=== PATIENT | female | born 1945 | race Caucasian/White ===

== ENCOUNTER → 2023-01-18 08:49 | Outpatient (CLI) | payer OTHER, SELFPAY ==
--- NOTE | 2023-01-18 08:55 | DI.RAD.S_ITS ---
PROCEDURE: XR LUMBAR SPINE 2-3V INDICATIONS: low back pain TECHNIQUE: 3 views of the lumbar spine were acquired. COMPARISON: None. FINDINGS: Bones: 5 [id number] vertebrae are present. Grade 1 anterolisthesis of L3 on L4. Mild disc height loss at all levels. Facet arthrosis L2 through S1. Soft tissues: Overlying bowel gas pattern is normal. No suspicious soft tissue calcifications. IMPRESSION: Mild, multilevel degenerative disc disease and facet arthrosis. Dictated by: Denver Alexander M.D. on 01/18/2023 at 10:17 Approved by: Denver Alexander M.D. on 01/18/2023 at 10:17
[2023-01-18 10:21] LABS: Hemoglobin A1C% w Est Avg Glu 5.3 % (4.0-6.0)
[2023-01-18 10:58] LABS: Alanine Aminotransferase 16 IU/L (<35); Albumin 4.1 g/dL (3.5-5.0); Albumin Globulin Ratio 1.4 (1.0-2.8); Alkaline Phosphatase 111 U/L (38-126); Aspartate Aminotransferase 23 IU/L (14-36); BUN Creatinine Ratio 15.5 (6-22); Bilirubin Total 0.4 mg/dL (0.2-1.3); Blood Urea Nitrogen 13 mg/dL (7-17); Calcium 9.4 mg/dL (8.4-10.2); Carbon Dioxide 28 mmol/L (22-32); Chloride 103 mmol/L (98-107); Cholesterol 211 mg/dL (140-199); Estimated Glomerular Filt Rate > 60 mL/min (>60); Glucose 98 mg/dL (80-110); HDL Cholesterol 42 mg/dL (40-60); HEMOLYSIS < 15 (0-50); LDL Cholesterol Calculated 144 mg/dL (<100); Potassium 4.2 mmol/L (3.4-5.1); Sodium 140 mmol/L (137-145); Total Protein 7.1 g/dL (6.3-8.2); Triglycerides 124 mg/dL (35-150)
== END ==
PROVIDERS: PCP Family Medicine; Referring Provider Family Medicine; Visit Provider Family Medicine
DX: Z00.00 Encounter for general adult medical examination without abnormal findings (principal); M51.16 Intervertebral disc disorders with radiculopathy, lumbar region; M47.26 Other spondylosis with radiculopathy, lumbar region; M47.27 Other spondylosis with radiculopathy, lumbosacral region; M54.50 Low back pain, unspecified; G89.29 Other chronic pain; R03.0 Elevated blood-pressure reading, without diagnosis of hypertension; Z13.1 Encounter for screening for diabetes mellitus; Z13.6 Encounter for screening for cardiovascular disorders
CPT/HCPCS: 36415; 72100; 80053; 80061; 83036

== ENCOUNTER → 2023-02-22 12:24 | Outpatient (CLI) | payer OTHER, SELFPAY ==
--- NOTE | 2023-02-22 12:27 | DI.RAD.S_ITS ---
PROCEDURE: XR CHEST 2V INDICATIONS: cough x 6 months TECHNIQUE: 2 views of the chest were acquired. COMPARISON: None. FINDINGS: Surgical changes and devices: None. Lungs and pleura: Lungs are clear. No pleural effusions or pneumothorax. Mediastinum: Mediastinal contours are normal. Heart size is normal. Bones and chest wall: No suspicious bony abnormalities. Soft tissues appear unremarkable. IMPRESSION: No acute cardiopulmonary disease process. Dictated by: Lita Neves MD, PhD on 02/22/2023 at 13:22 Approved by: Lita Neves MD, PhD on 02/22/2023 at 13:22
== END ==
PROVIDERS: PCP Family Medicine; Referring Provider Family Medicine; Visit Provider Family Medicine
DX: R05.3 Chronic cough (principal)
CPT/HCPCS: 71046

== ENCOUNTER → 2024-06-25 09:30 | Outpatient (CLI) | payer MEDICARE, SELFPAY ==
--- NOTE | 2024-06-25 09:31 | DI.US.S_ITS ---
PROCEDURE: US PERIPH VENOUS LOW EXTREM RT INDICATIONS: Right leg pain TECHNIQUE: Real-time imaging, as well as color and pulse Doppler interrogation, were performed of the lower extremity deep veins from the inguinal ligament to the popliteal fossa, with documentation of the visualized calf veins. COMPARISON: None. FINDINGS: The common femoral, femoral, popliteal, and the visualized calf veins are normally compressible, and free of intraluminal thrombus. Color and pulse Doppler demonstrate normal phasic intraluminal flow. There is normal augmentation response to distal compression maneuver. A knee joint effusion is present. IMPRESSION: 1. Negative right lower extremity duplex venous ultrasound for DVT. 2. Knee joint effusion. Dictated by: Kennedy Neville M.D. on 06/25/2024 at 10:51 Approved by: Kennedy Neville M.D. on 06/25/2024 at 10:52
--- NOTE | 2024-06-25 10:38 | DI.RAD.S_ITS ---
PROCEDURE: XR KNEE RT 3V INDICATIONS: right knee pain TECHNIQUE: 3 views of the knee were acquired. COMPARISON: None. FINDINGS: Small knee effusion. Mild lateral tilt of the patella. Severe, patellofemoral compartment predominant osteoarthritis. Ossification about the lateral aspect of the patella, representing prior injury. No acute fracture or dislocation. IMPRESSION: Degenerative changes as described above. Dictated by: Denisha Ruiz M.D. on 06/25/2024 at 14:59 Approved by: Denisha Ruiz M.D. on 06/25/2024 at 15:01
== END ==
PROVIDERS: PCP Family Medicine; Referring Provider Nurse Practitioner Family; Visit Provider Nurse Practitioner Family
DX: M17.11 Unilateral primary osteoarthritis, right knee (principal); M79.604 Pain in right leg; M25.561 Pain in right knee; M25.461 Effusion, right knee
CPT/HCPCS: 73562; 93971

== ENCOUNTER → 2024-08-10 16:56 | Outpatient (CLI) | payer MEDICARE, SELFPAY ==
[2024-08-10 18:55] LABS: Cholesterol 222 mg/dL (140-199); HDL Cholesterol 46 mg/dL (40-60); LDL Cholesterol Calculated 151 mg/dL (<100); Triglycerides 127 mg/dL (35-150)
[2024-08-11 05:42] LABS: High Sensitivity CRP - Cardiac 3.1 mg/L (1.0-3.0)
== END ==
PROVIDERS: PCP Family Medicine; Referring Provider Family Medicine; Visit Provider Family Medicine
DX: E78.5 Hyperlipidemia, unspecified (principal)
CPT/HCPCS: 80061; 86140

== ENCOUNTER 2025-08-21 09:50 | Day surgery (SDC) | payer MEDICARE, SELFPAY ==
[2025-08-16 09:02] VITALS: BMI 36.3
[2025-08-21] VITALS (7 sets, daily range): BP systolic 106–133; BP diastolic 56–81; PULSE 64–89; RESP 14–25; TEMP 36.2–37.1; O2SAT 95–99
[2025-08-21] MEDS: LACTATED RINGERS 1,000 ML 42 ML IV (11:00)
--- NOTE | 2025-08-21 12:11 | PM.PREOP ---
Pre-operative Note Interval Note History & Physical reviewed/Exam performed by Physician: Yes Changes to H&P: No
--- NOTE | 2025-08-21 12:59 | SUR.OPER ---
Supine on padded OR bed, head on pillow, non operative arm secured on padded arm boards at <90 degrees abduction, operative arm on padded arm board, legs uncrossed, safety belt at thigh, tape over blanket over lower legs. All pressure points padded and protected.
[2025-08-21] MEDS: LIDOCAINE 1% W/EPI 10ML 10 ML INJ (13:04)
--- NOTE | 2025-08-21 13:30 | P.OP_ITS ---
Operative Date/Time/Diagnoses Date of procedure: 08/21/25 Time of procedure: 13:30 Pre-op diagnosis: RIGHT Ring Finger Trigger Finger Post-op diagnosis: same Procedure & Clinicians Procedure: RIGHT Ring Finger Trigger Finger Same procedure(s) as scheduled: Yes Surgeon: Kam Perdue Assisted?: Yes Ring Stamper: Yuliana Gamble Anesthesia Type: MAC +/- Operative Notes Findings: Thickened A1 tejas Closure Type: primary Specimen(s): none sent Applied: none Estimated Blood Loss (mL): 3 Blood products transfused: none Tourniquet time (min): 15 Procedure in detail: Fingers Released: Right Ring Finger Preoperative diagnosis: Stenosing Tenosynovitis of the Above Digits Procedure performed: A1 Tejas Release of the Above Digits Postoperative diagnosis: Same Primary Surgeon: Kam Perdue MD Secondary Surgeon: LAURA Flood Physician Ring Stamper was used throughout the entirety of the case. ?This operation could not have been safely performed (without compromising the technical results or length of the procedure) without the assistance of a skilled certified surgical assistant. A certified surgical assistant was medically necessary for room set up, patient positioning, draping, retraction, visualization, reduction, fixation and closure. ?They were essential ?for the success of the case. Anesthesia: General EBL: 3 ml Tourniquet: 15 minutes @ 250 mmHg Indication For Surgery: Patient presented with triggering and pain of the affected digits. Conservative treatment did not improve symptoms to an acceptable level. The risks, benefits, and alternatives were discussed. Risks include pain, bleeding, infection, damage to nearby structures, tendon damage, nerve damage, blood vessel damage, wound healing complications, lack of symptom relief, need for further surgery, DVT, PE, stroke, and . Written consent was obtained. Operative Findings: Thickened A1 tejas of the affected digits. Triggering resolved after A1 tejas release. Procedure in Detail: The patient was met in the pre-operative hold area. Consent was verified and operative extremity was signed. Local anesthesia was [] injected. The patient then met with anesthesia and was brought back to the operating room. The patient was placed supine on the operating table. Anesthetic was administered. The extremity was then prepped and draped in the usual sterile fashion. A timeout was performed per protocol. All were in agreement and we proceeded. Local anesthesia was tested with a sharp adson pickup and found to be adequate. A longitudinal incision was made at the level of the A1 pully overlying the affected digit. Blunt dissection was made with scissors down to the tendon sheath and the tissues were spread in line with the tendon and neurovascular structures. 3 blunt retractors were placed and the A1 tejas was identified. The A1 tejas was cut sharply with a knife from the distal to the proximal edge. A complete release was confirmed with the use of an elevator. Synovitis and thickening of the tendons were seen underneath it. The finger was then flexed and extended without any catching. The wound was irrigated copiously and closed with horizontal mattress sutures. A sterile dressing was applied. Postoperative Protocol: Same day discharge Soft dressing Unlimited finger flexion and extension Remove dressing in 4 days and replace with bandaid No firm gripping for 2 weeks Sutures out at 2 weeks Manual labor at 4 weeks Kam Perdue MD Complications: none Post-operative Condition: stable Disposition: PACU
== END 2025-08-21 14:11 | disposition home or self-care (01) ==
PROVIDERS: PCP Family Medicine; Referring Provider Family Medicine; Visit Provider Orthopaedic Surgery
PROC: (CPT 26055; principal; 2025-08-21 11:15)
DX: M65.341 Trigger finger, right ring finger (principal); M65.941 Unspecified synovitis and tenosynovitis, right hand; Z86.12 Personal history of poliomyelitis
CPT/HCPCS: 26055; J0689; J7120